=== PATIENT | male | born 1985 | race Caucasian/White ===

== ENCOUNTER 2021-02-05 12:16 | Emergency (ER) | payer BC, SELFPAY ==
--- NOTE | ~2021-02-05 | XR_ITS ---
EXAMINATION: XR CHEST CLINICAL INFORMATION: Shortness of breath and wheezing COMPARISON: None TECHNIQUE: Frontal view of the chest was obtained. FINDINGS: The cardiac and mediastinal contours are normal. The lungs are clear. There is no pleural effusion or pneumothorax. There are degenerative changes of the spine. XR/XR chest 1V IMPRESSION: Unremarkable examination.
--- NOTE | 2021-02-05 12:47 | ED.SOB ---
HPI - SOB/Dyspnea General Chief Complaint: Upper Respiratory Symptoms Stated Complaint: shortness of breath Time Seen by Provider: 02/05/21 12:46 Source: patient Mode of arrival: ambulatory Limitations: no limitations History of Present Illness HPI Narrative: 35 y/o male with no significant medical history presents to the ER with chest congestion and SOB for the last 1 month. 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 He reports intermittent productive cough with improvement in his symptoms when he gets phlegm up. No chest pain. No fever, chills, N/V, sore throat, abdominal pain, runny nose or sinus pain. He is fully vaccinated against COVID. He admits to childhood asthma but has not had any issues as an adult. MD elicited complaint: shortness of breath Onset (ago): month(s) (1) Timing: intermittent and progressively worsening Severity: moderate Exacerbating factors: lying flat, coughing and inspiration Relieving factors: rest Known history of: asthma Associated symptoms: denies other symptoms Treatment prior to arrival: none Related Data Home oxygen amount: none Previous Rx's Medication Instructions Recorded albuterol sulfate 1 inh INHALATION QID PRN #6.7 g 02/05/21 azithromycin [Zithromax Z-Dimitrios] See Rx Instructions .ROUTE 02/05/21 .COMPLEX #6 tab cetirizine [Zyrtec] 10 mg PO DAILY #14 tab 02/05/21 guaifenesin [Mucinex] 1,200 mg PO BID #10 tab 02/05/21 prednisone 40 mg PO DAILY 5 Days #10 tab 02/05/21 Allergies Allergy/AdvReac Type Severity Reaction Status Date / Time Unable to Assess Allergy Unverified 02/05/21 13:13 Review of Systems Review of Systems: Constitutional: No Fever, No Chills ENT/Mouth: No sore throat, No Rhinorrhea, No Swallowing Difficulty Eyes: No Eye Pain, No Swelling, No Redness Cardiovascular: No Chest Pain, No SOB, No Orthopnea, No Edema Respiratory: + Cough, + Sputum, + Wheezing, + dyspnea Gastrointestinal: No Nausea, No Vomiting, No Diarrhea, No abdominal Pain Genitourinary: No Dysuria, No Urinary Frequency, No Hematuria Musculoskeletal: No joint pain, No Myalgias Skin: No Skin Lesions, No rash Neuro: No Weakness, No Numbness, No Dizziness, + Headache Psych: No Anxiety/Panic, No Depression Heme/Lymph: No Bruising, No Lymphadenopathy Endocrine: No Polyuria, No Polydipsia PMF Past Medical History Attestation statement: The following information was validated with the patient. Social History Social History Alcohol intake: never Smoked in Last 30 Days: No Use of substances other than those prescribed or required for medical reasons: No Advance Directives: No Advance Directives Information Provided: No Physical Exam Vital Signs: Vital Signs: Last Vital Signs Temp 98.2 F 02/05/21 13:02 Pulse 69 02/05/21 13:51 Resp 18 02/05/21 13:02 BP 143/85 H 02/05/21 13:02 Pulse Ox 94 02/05/21 13:02 Appearance: Alert. Oriented X3. No acute distress. Eyes: Pupils equal, round and reactive to light. ENT: Pharynx normal. Neck: Normal inspection. Neck supple. CVS: Normal heart rate and rhythm. Pulses normal. Respiratory: No respiratory distress. Breath sounds with expiratory wheezes throughout, scattered rhonchi. Abdomen: Soft and nontender. +BS x4 Skin: Skin warm and dry. Normal skin color. Normal skin turgor. No rashes. Extremities: No lower extremity edema. Negative Tanya's sign. Neuro: Oriented X 3. No motor deficit. No sensory deficit. Course Course Course Narrative: 35 y/o male presenting with 1 month of SOB and chest congestion, waxes and wanes. Exam reveals bilateral expriatory wheezes without hypoxia or respiratory distress. Will get COVID swab, CXR. Prednisone and albuterol neb ordered. Reevaluation(s) Reevaluation #1: CXR negative. COVID negative. Significant improvement in wheezing and aeration after neb treatment and steroids. Will treat for acute bronchitis. Stable for d/c home with outpatient follow up. Patient agreeable. MDM - SOB/Dyspnea Lab Data Labs: Lab Results 02/05/21 Range/Units 13:31 COVID-19 ([facility]) Negative (Negative) COVID-19 Clin Com See Note Critical Care Time Critical Care Time Critical Care Time: No Discharge Plan Discharge Clinical Impression: Bronchitis Patient Disposition: Home, Self-Care Instructions: Acute Bronchitis (ED), Bronchospasm (ED) Additional Instructions: Your x-ray today was negative. Your COVID test was negative. You are being treated for bronchitis and wheezing. Recommend following up with your doctor in 1 week. Recommend Pulmonary Function testing for possible reactive airway disease or asthma. Prescriptions: New albuterol sulfate 90 mcg/actuation HFA aerosol inhaler 1 inh inhalation QID PRN (Reason: shortness of breath or wheezing) Qty: 6.7 RF: 0 azithromycin [Zithromax Z-Dimitrios] 250 mg tablet See Rx Instructions .ROUTE .COMPLEX Qty: 6 RF: 0 prednisone 20 mg tablet 40 mg PO DAILY 5 Days Qty: 10 RF: 0 cetirizine [Zyrtec] 10 mg tablet 10 mg PO DAILY Qty: 14 RF: 0 Mucinex 1,200 mg tablet extended release 12hr 1,200 mg PO BID Qty: 10 RF: 0 Referrals: Neftali Damon MD [Physician] - 1 week
[2021-02-05 13:02] VITALS: BP 143/85; PULSE 72; RESP 18; TEMP 36.8; O2SAT 94
[2021-02-05] MEDS: guaiFENesin LA 600 MG TAB.ER.12H 1200 MG PO (13:25)
[2021-02-05] MEDS: predniSONE 20 MG TABLET 60 MG PO (13:25)
--- NOTE | 2021-02-05 13:35 | PC.NURSE ---
Medicated per orders. Patient resting on stretcher. No complaints at this time. Pending result of covid swab.
[2021-02-05] MEDS: Albuterol Sulfate (0.083%) 2.5 MG/3 ML VIAL.NEB 5 MG INHALE (13:50)
[2021-02-05 13:51] VITALS: PULSE 69; O2SAT 98
[2021-02-05 14:01] LABS: COVID-19 Test Negative (Negative); IDNOW Serial# 9DD0AD1C
--- NOTE | 2021-02-05 14:50 | PC.NURSE ---
Pt left without signing d/c of vitals. covering physican aware.
== END 2021-02-05 14:55 | disposition home or self-care (01) ==
PROVIDERS: Physician Assistant; Emergency Provider Emergency Medicine; PCP Internal Medicine
DX: J20.9 Acute bronchitis, unspecified (principal); Z20.822 Contact with and (suspected) exposure to COVID-19
CPT/HCPCS: 36415; 71045; 87635; 94640; 94644; 99284

== ENCOUNTER 2021-03-08 06:47 | Emergency (ER) | payer BC, SELFPAY ==
--- NOTE | ~2021-03-08 | XR_ITS ---
EXAMINATION: XR CHEST CLINICAL INFORMATION: Shortness of breath COMPARISON: Previous chest x-ray most recent January 2021 TECHNIQUE: Frontal view of the chest was obtained. FINDINGS: No significant abnormality is noted involving the heart, lungs, mediastinum, bony thorax or soft tissues. XR/XR chest 1V IMPRESSION: Unremarkable examination.
[2021-03-08 07:13] VITALS: BP 122/76; PULSE 71; RESP 20; TEMP 37.1; O2SAT 96; BMI 31.8
--- NOTE | 2021-03-08 07:21 | PC.NURSE ---
Pt alert and oriented x3, vss, LS inspiratory and expiratory wheezes throughout. Pt states 3-4 days ago he started having trouble breathing. He states he had a previous episode a few weeks ago. Pt in no apparent distress. Ed provider at bedside.
--- NOTE | 2021-03-08 07:26 | ED.SOB ---
HPI - SOB/Dyspnea General Chief Complaint: Dyspnea Stated Complaint: diff breathing Time Seen by Provider: 03/08/21 07:21 Source: patient Mode of arrival: ambulatory Limitations: no limitations History of Present Illness HPI Narrative: patient comes to emergency room complaining of shortness of breath and wheezing. Patient states that he had similar episode 1 month ago, discharged with antibiotics and steroids and helped, but a few weeks later he started having recurrent symptoms. Patient states for the last 3-4 days, he has been having progressively increased shortness of breath with audible wheezing. Patient does not have any albuterol left at home. Patient denies chest pain, denies fever chills. Patient denies history of COPD or asthma Related Data Previous Rx's Medication Instructions Recorded albuterol sulfate 1 inh INHALATION QID PRN #6.7 g 02/05/21 azithromycin [Zithromax Z-Dimitrios] See Rx Instructions .ROUTE 02/05/21 .COMPLEX #6 tab cetirizine [Zyrtec] 10 mg PO DAILY #14 tab 02/05/21 guaifenesin [Mucinex] 1,200 mg PO BID #10 tab 02/05/21 prednisone 40 mg PO DAILY 5 Days #10 tab 02/05/21 albuterol sulfate 2 puff INHALATION Q4-6H PRN #8.5 g 03/08/21 prednisone 50 mg PO DAILY #5 tab 03/08/21 Allergies Allergy/AdvReac Type Severity Reaction Status Date / Time Unable to Assess Allergy Unverified 02/05/21 13:13 Review of Systems Review of Systems: Constitutional : No Weight loss, No Fever, No Chills, No Night Sweats, No Fatigue, No Malaise ENT/Mouth : No Hearing loss, No Ear Pain, No Nasal Congestion, No Sinus Pain, No Hoarseness, No sore throat, No Rhinorrhea, No Swallowing Difficulty Eyes: No Eye Pain, No Swelling, No Redness, No Foreign Body, No Discharge, No Vision Changes Cardiovascular : No Chest Pain, No SOB, No Dyspnea on Exertion, No Orthopnea, No Edema, No Palpitations Respiratory : No Cough, No Sputum, complaining of shortness of breath and wheezing Gastrointestinal : No Nausea, No Vomiting, No Diarrhea, No Constipation, No abdominal Pain, No Hematochezia, No Melena Genitourinary : no irregular bleeding, No Dysuria, No Urinary Frequency, No Hematuria, No Urinary Incontinence, No Urgency, No Flank Pain, No Urinary Flow Changes, No Hesitancy Musculoskeletal : No joint pain, No Myalgias, No Joint Swelling Skin : No Skin Lesions, No rash Neuro : No Weakness, No Numbness, No Paresthesias, No Loss of Consciousness, No Dizziness, No Headache Psych : No Anxiety/Panic, No Depression, No SI/HI/AH/VH, No Social Issues, Heme/Lymph: No Bruising, No Bleeding,No Lymphadenopathy Endocrine : No Polyuria, No Polydipsia, No Temperature Intolerance [facility] Social History Social History Alcohol intake: never Patient Tobacco Use Status: Never used Tobacco Use of substances other than those prescribed or required for medical reasons: No Advance Directives: No Advance Directives Information Provided: No Physical Exam Vital Signs: Vital Signs: Last Vital Signs Temp 98.7 F 03/08/21 07:48 Pulse 74 03/08/21 08:34 Resp 20 03/08/21 07:48 BP 122/76 03/08/21 07:48 Pulse Ox 96 03/08/21 07:48 Body Mass Index 31.8 Appearance: Alert. Oriented X3. No acute distress. Eyes: Pupils equal, round and reactive to light. ENT: Pharynx normal. Neck: Normal inspection. Neck supple. No lymph nodes noted. No crepitus CVS: Normal heart rate and rhythm. Pulses normal. Normal S1 and S2 Respiratory: No respiratory distress. no rales or crackles, audible bilateral wheezing diffusely, moderate air movement Abdomen: Soft and nontender. No rigidity. No distention. good BS x4 Skin: Skin warm and dry. Normal skin color. Normal skin turgor. Extremities: No lower extremity edema. No lower extremity edema. No Lacerations. No Rash Neuro: Oriented X 3. No motor deficit. No sensory deficit. Moving all extermities. No slurred speech. Course Course Course Narrative: Patient states that he feels much better after a dose of Solu-Medrol and hour long breathing treatment. Patient walked around the emergency room, oxygen saturation remained at 94%, patient feeling short of breath. It is likely that patient has asthma exacerbation triggered by his seasonal allergies. At this time, antibiotic not recommended. on pulmonary physical exam at discharge, patient is no longer wheezing. MDM - SOB/Dyspnea Imaging Data Chest x-ray: Radiologist's impression: FINDINGS: No significant abnormality is noted involving the heart, lungs, mediastinum, bony thorax or soft tissues. XR/XR chest 1V IMPRESSION: Unremarkable examination. Discharge Plan Discharge Clinical Impression: Asthma with exacerbation Qualifiers: Asthma severity: unspecified severity Asthma persistence: unspecified Qualified Code(s): J45.901 - Unspecified asthma with (acute) exacerbation Patient Disposition: Home, Self-Care Instructions: Asthma (ED) Additional Instructions: Please follow-up with your primary care physician tomorrow. If you have any worsening or new symptoms, please return to the emergency room or call 911 Prescriptions: New albuterol sulfate 90 mcg/actuation HFA aerosol inhaler 2 puff inhalation Q4-6H PRN (Reason: shortness of breath or wheezing) Qty: 8.5 RF: 1 prednisone 50 mg tablet 50 mg PO DAILY Qty: 5 RF: 0 No Action albuterol sulfate 90 mcg/actuation HFA aerosol inhaler 1 inh inhalation QID PRN (Reason: shortness of breath or wheezing) Qty: 6.7 RF: 0 azithromycin [Zithromax Z-Dimitrios] 250 mg tablet See Rx Instructions .ROUTE .COMPLEX Qty: 6 RF: 0 prednisone 20 mg tablet 40 mg PO DAILY 5 Days Qty: 10 RF: 0 cetirizine [Zyrtec] 10 mg tablet 10 mg PO DAILY Qty: 14 RF: 0 Mucinex 1,200 mg tablet extended release 12hr 1,200 mg PO BID Qty: 10 RF: 0
[2021-03-08] MEDS: methylPREDNISolone Sod Succ 125 MG/2 ML VIAL IVPUSH (07:38)
[2021-03-08] MEDS: Magnesium Sulfate/H2O 2 GM/50 ML PIGGYBACK IV (07:39)
[2021-03-08 07:48] VITALS: BP 122/76; PULSE 66; RESP 20; TEMP 37.1; O2SAT 96
--- NOTE | 2021-03-08 08:30 | PC.NURSE ---
Respiratory therapy at bedside.
[2021-03-08] MEDS: Albuterol Sulfate (0.083%) 2.5 MG/3 ML VIAL.NEB 10 MG INHALE (08:33)
[2021-03-08 08:34] VITALS: PULSE 74; O2SAT 98
[2021-03-08 09:45] VITALS: PULSE 80; RESP 20; O2SAT 94
--- NOTE | 2021-03-08 09:47 | PC.NURSE ---
Pt's O2 sat 94% RA with ambulation, HR 80, Resp 20, no c/o sob/difficulty breathing. LS clear. Pt up for discharge.
== END 2021-03-08 09:56 | disposition home or self-care (01) ==
PROVIDERS: Emergency Provider Emergency Medicine; PCP Internal Medicine
DX: J45.901 Unspecified asthma with (acute) exacerbation (principal); Z79.899 Other long term (current) drug therapy
CPT/HCPCS: 71045; 94640; 94644; 96365; 96366; 96375; 99284; J2930; J3475